=== PATIENT | female | born 1955 | race Caucasian/White ===

== ENCOUNTER 2020-12-30 13:12 | Emergency (ER) | payer OTHER ==
[2020-12-30 13:20] VITALS: BP 141/62; PULSE 93; TEMP 97.8; BMI 36.3
[2020-12-30] MEDS ORDERED: IBUPROFEN 600 MG TABLET (FP) PO ONE ×2 (14:46→15:34)
== END 2020-12-30 15:00 | disposition home or self-care (01) ==
LOC: JER 13:12
DX: M79.661 Pain in right lower leg (principal)
CPT/HCPCS: 93971-TC; 99284-25

== ENCOUNTER 2024-07-17 04:25 | Day surgery (SDC) | payer OTHER ==
[2024-07-10 12:09] VITALS: BMI 37.8
[2024-07-17 11:38] VITALS: TEMP 98
[2024-07-17 13:09] VITALS: BP 113/47; PULSE 68; RESP 117
== END 2024-07-17 12:33 | disposition home or self-care (01) ==
LOC: JASU-ENDO 04:25
PROVIDERS: ATTEND Internal Medicine Gastroenterology
PROC: 0DBL8ZX Excision of Transverse Colon, Via Natural or Artificial Opening Endoscopic, Diagnostic (ICD-10-PCS; 2024-07-17)
PROC: 0DBN8ZX Excision of Sigmoid Colon, Via Natural or Artificial Opening Endoscopic, Diagnostic (ICD-10-PCS; principal; 2024-07-17 11:00)
DX: R10.84 Generalized abdominal pain (principal); D12.3 Benign neoplasm of transverse colon; D12.7 Benign neoplasm of rectosigmoid junction; K57.30 Diverticulosis of large intestine without perforation or abscess without bleeding
CPT/HCPCS: 88305-TC